=== PATIENT | female | born 1960 | race Caucasian/White ===

== ENCOUNTER 2021-10-17 13:23 | Emergency (ER) | payer OTHER ==
--- OUTSIDE RECORDS SUMMARY | 2021-10-17 13:26 | XMS REPORT | Continuity of Care Document ---
:1960 Author Organization [facility] t Address [address] [place] [address] Care Team Providers Name Role Phone MARK Primary Care Physician Unavailable MARK Attending Clinician Unavailable MARK Attending Clinician Unavailable Payers Payer Name Policy Type Policy Number Effective Date Expiration Date S ource Problems Condition Condition Condition Status Onset Resolution Last Treating Co mments Source Name Details Category Date Date Treatment Clinician Date S/P foot S/P foot Disease Active Unive rs surgery surgery 06-09 ity of 00:00: [address] S/P total S/P total Disease Active Uni vers hip hip 7- ity [place] [facility] Hip Hip Disease Active Univers arthritis arthritis 6-12 ity of 00:00: [address] Allergies, Adverse Reactions, Alerts Allergy Allergy Status Severity Reaction(s) Onset Inactive Treating Comm ents Source Name Type Date Date Clinician NO KNOWN Drug Active Univers ALLERGIE Class ity of S [facility] Social History Social Habit Start Date Stop Date Quantity Comments Source Exposure to Not sure [facility] SARS-CoV-2 (event) [facility] Alcohol intake 2021-07-25 2021-07-25 .86 /d University of 00:00:00 00:00:00 [facility] Cigarettes smoked 2015-09-23 2015-09-23 Univers ity of current (pack per 00:00:00 00:00:00 [facility] ) - Reported Branch Cigarette 2015-09-23 2015-09-23 University of pack-years 00:00:00 00:00:00 [facility] Tobacco use and 2015-09-23 2015-09-23 Never used Universit y of exposure 00:00:00 00:00:00 [facility] History of tobacco 2015-05-13 Cigarette Smoker University of use 00:00:00 [facility] Sex Ass[birth year] At [birth year] Universit y of 00:00:00 00:00:00 [facility] Smoking Status Start Date Stop Date Source Former smoker 2015-09-23 00:00:00 2015-09-23 00:00:00 Universi ty [facility] Medications Ordered Filled Start Stop Current Ordering Indication Dosage Frequency Signature Comments Components Source Medication Medication Date Date Medication? Clinician (SIG) Name Name cyclobenzap 2021- No [id number] 10mg Take 1 Univers rine 10 mg 3-15 03-30 tablet by ity of tablet 00:00: 04:59 mouth 3 [place] 00 :00 (three) Medical times [place] daily for 14 days. cyclobenzap 2021- No [id number] 10mg Take 1 Univers rine 10 mg 3-15 03-30 tablet by ity of tablet 00:00: 04:59 mouth 3 [place] 00 :00 (three) Medical times [place] daily for 14 days. meloxicam 2021- No [id number] 7.5mg Take 7.5 Univers 7.5 mg TbDL 3-15 03-28 mg by ity of 00:00: 00:00 mouth 2 [place] 00 :00 (two) Medical times [place] daily as needed for Pain (scale 4-6). meloxicam 2021- No [id number] 7.5mg Take 7.5 Univers 7.5 mg TbDL 3-15 03-28 mg by ity of 00:00: 00:00 mouth 2 [place] 00 :00 (two) Medical times [place] daily as needed for Pain (scale 4-6). Immunizations Ordered Filled Immunization Date Status Comments Sourc e Immunization Name Name Influenza Virus 2013-02-17 Completed Universit y of Vaccine (3+ yrs) 00:00:00 [facility] dical [place] Influenza Virus 2013-02-17 Completed Universit y of Vaccine (3+ yrs) 00:00:00 [facility] [place] Vital Signs Vital Name Observation Time Observation Value Comments Source Systolic blood 2021-07-25 16:54:00 150 mm[Hg] Univer sity of pressure [facility] Diastolic blood 2021-07-25 16:54:00 81 mm[Hg] Unive rsity of pressure [facility] Heart rate 2021-07-25 16:54:00 74 /min [facility] Body temperature 2021-07-25 16:54:00 35.94 [facility] Respiratory rate 2021-07-25 16:54:00 18 /[facility] Body weight 2021-07-25 16:54:00 82.101 kg [facility] BMI 2021-07-25 16:54:00 28.35 kg/m2 [facility] Oxygen saturation in 2021-07-25 16:54:00 98 /min [facility] Arterial blood by [facility] Pulse oximetry Branch Procedures This patient has no known procedures. Encounters Start End Encounter Admission Attending Care Care Encounter Source Date/Time Date/Time Type Type Clinicians Facility Department ID 2021-10-30 2021-10-30 Outpatient R ADONAY FLORES [facility] [id number] Univers 15:30:00 15:30:00 ADONAY FLORES 220 [facility] 2021-07-25 2021-07-25 Office MAYELIN Flores [id number] Univers 11:30:00 12:43:44 [id number] Shavonne agudelo PROFESSIO [id number] Ms dical [place] [id number] Branch BUILDING 2021-07-25 2021-07-25 Outpatient R ADONAY FLORES [facility] [id number] Univers 11:30:00 12:43:44 ADONAY FLORES [facility] Results This patient has no known results.
--- NOTE | 2021-10-17 16:51 | EDPHYS ---
Physician Documentation [facility] Name: Paula Finch Age: 60 yrs Sex: Female : 1960 Arrival Date: 10/17/2021 Time: 13:27 Bed DIS3 Private MD: ED Physician Mina Cruz HPI: 10/17 13:36 This 60 yrs old Female presents to ER via Ambulatory with complaints of Body Aches, jmm Cough. 13:36 The patient or guardian reports cough. Onset: The symptoms/episode began/occurred jmm gradually, 3 day(s) ago. Modifying factors: The symptoms are alleviated by nothing. the symptoms are aggravated by nothing. Associated signs and symptoms: Pertinent positives: fever, sore throat. It is unknown whether or not the patient has had similar symptoms in the past. Historical: - Allergies: 13:44 No Known Allergies; ap3 - Home Meds: 13:44 None [Active]; ap3 - PMHx: 13:44 None; ap3 - Immunization history:: Client reports having NOT received the Covid vaccine. - Social history:: Smoking status: Patient/guardian denies using tobacco, the patient reports quitting approximately 5 years ago. ROS: 13:36 Constitutional: Positive for body aches, chills. jmm 13:36 ENT: Positive for sore throat. 13:36 Respiratory: Positive for cough. 13:36 All other systems are negative. Exam: 13:36 Constitutional: This is a well developed, well nourished patient who is awake, alert, jmm and in no acute distress. Head/Face: atraumatic. Eyes: EOMI, no conjunctival erythema appreciated ENT: Moist Mucus Membranes Neck: Trachea midline, Supple Chest/axilla: Normal chest wall appearance and motion. Cardiovascular: Regular rate and rhythm. No edema appreciated Respiratory: Normal respirations, no respiratory distress appreciated Abdomen/GI: Non distended, soft Back: Normal ROM Skin: General appearance color normal MS/ Extremity: Moves all extremities, no obvious deformities appreciated, no edema noted to the lower extremities Neuro: Awake and alert Psych: Behavior is normal, Mood is normal, Patient is cooperative and pleasant Vital Signs: 13:43 BP 134 / 78; Pulse 71; Temp 97.7; Pulse Ox 99% ; Weight 80.74 kg; Height 5 ft. 7 in. ap3 (170.18 cm); 13:43 Body Mass Index 27.88 (80.74 kg, 170.18 cm) ap3 MDM: 14:41 Patient medically screened. [facility] 16:49 Data reviewed: vital signs, nurses notes. Counseling: I had a detailed discussion with shawna the patient and/or guardian regarding: the historical points, exam findings, and any diagnostic results supporting the discharge/admit diagnosis, lab results, the need for outpatient follow up, to return to the emergency department if symptoms worsen or persist or if there are any questions or concerns that arise at home. ED course: Patient is alert and non toxic in appearance in the ED. No signs of resp distess. Patient advised to follow up with pcp and otherwise given strict return precautions. Patient understood and agrees with the plan of care, . 10/17 13:35 Order name: Influenza Screen (a \\T\\ B); Complete Time: 15:57 [facility] 10/17 13:35 Order name: SARS-COV-2 RT PCR (Document "Date of Onset" if Symptomatic); Complete Time: [facility] 15:57 10/17 13:36 Order name: Strep; Complete Time: 15:57 [facility] 10/17 14:51 Order name: Throat Culture EDMS Administered Medications: No medications were administered Disposition Summary: 10/17/21 16:50 Discharge Ordered Location: Home [facility] Condition: Stable [facility] Diagnosis - Coronavirus infection, unspecified [facility] Followup: [facility] - With: Private Physician - When: 2 - 3 days - Reason: Recheck today's complaints, Continuance of care, Re-evaluation by your physician Discharge Instructions: - Discharge Summary Sheet [facility] - COVID-19 [facility] Forms: - Medication Reconciliation Form [facility] - Thank You Letter [facility] - Antibiotic Education [facility] - Prescription Opioid Use [facility] Prescriptions: - PAXLOVID - take 1 application by ORAL route 2 times per day for 5 days; 1 packet; Refills: [facility] 0, Product Selection Permitted Addendum: 10/18/2021 23:26 Co-signature as Attending Physician, Mina Cruz MD. r n Signatures: Dispatcher [employer] EDMS Ryan Kulkarni PA PA [facility] Mina Cruz MD MD rn Prokisch, Amanda, RN RN ap3
--- NOTE | 2021-10-17 16:51 | ER ---
Nurse's Notes [facility] Name: Paula Finch Age: 60 yrs Sex: Female : 1960 Arrival Date: 10/17/2021 Time: 13:27 Bed DIS3 Private MD: Diagnosis: Coronavirus infection, unspecified Presentation: 10/17 13:43 Chief complaint: Patient states: that the patient has been having congestion, for ap3 approx 3-4 days now. patient states she has been treating herself at home with nyquil/dayquil and soups. it is reported the patient has been afebrile. Coronavirus screen: Client presents with at least one sign or symptom that may indicate coronavirus-19. Ebola Screen: No symptoms or risks identified at this time. Initial Sepsis Screen: Does the patient meet any 2 criteria? No. Patient's initial sepsis screen is negative. Does the patient have a suspected source of infection? No. Patient's initial sepsis screen is negative. Initial Sepsis Screen: Does the patient meet any 2 criteria?. Risk Assessment: Do you want to hurt yourself or someone else? Patient reports no desire to harm self or others. Onset of symptoms was October 13, 2021. 13:43 Method Of Arrival: Ambulatory ap3 13:43 Acuity: RAFAEL 4 ap3 Triage Assessment: 13:44 General: Appears in no apparent distress. Behavior is calm, cooperative. Pain: ap3 Complains of pain in generalized body aches. Neuro: Level of Consciousness is awake, alert, obeys commands, Oriented to person, place, time, situation, Appropriate for age Gait is steady. Cardiovascular: Patient's skin is warm and dry. Respiratory: Airway is patent Respiratory effort is even, unlabored, Respiratory pattern is regular, symmetrical. Historical: - Allergies: 13:44 No Known Allergies; ap3 - Home Meds: 13:44 None [Active]; ap3 - PMHx: 13:44 None; ap3 - Immunization history:: Client reports having NOT received the Covid vaccine. - Social history:: Smoking status: Patient/guardian denies using tobacco, the patient reports quitting approximately 5 years ago. Screenin:45 Abuse screen: Denies threats or abuse. Nutritional screening: No deficits noted. ap3 Tuberculosis screening: No symptoms or risk factors identified. Fall Risk None identified. Assessment: 14:40 General: Appears comfortable, Behavior is calm, cooperative. Pain: Complains of pain in aa5 whole body Quality of pain is described as aching, Pain began 2-3 days ago. Neuro: Level of Consciousness is awake, alert, obeys commands, Oriented to person, place, time, situation. Cardiovascular: Heart tones S1 S2 present Patient's skin is warm and dry. Rhythm is regular. Respiratory: Reports cough Airway is patent Respiratory effort is even, unlabored, Respiratory pattern is regular, symmetrical. GI: Abdomen is round non-distended, Bowel sounds present X 4 quads. Abd is soft and non tender X 4 quads. : No signs and/or symptoms were reported regarding the genitourinary system. EENT: Reports nasal congestion. Derm: Skin is pink, warm \T\ dry. Musculoskeletal: Range of motion: intact in all extremities. 16:00 Reassessment: Patient is alert, oriented x 3, equal unlabored respirations, skin aa5 warm/dry/pink. Vital Signs: 13:43 BP 134 / 78; Pulse 71; Temp 97.7; Pulse Ox 99% ; Weight 80.74 kg; Height 5 ft. 7 in. ap3 (170.18 cm); 13:43 Body Mass Index 27.88 (80.74 kg, 170.18 cm) ap3 ED Course: 13:27 Patient arrived in ED. rg4 13:31 Ryan Kulkarni PA is PHCP. [facility] 13:32 Mina Cruz MD is Attending Physician. [facility] 13:44 Triage completed. ap3 13:45 Patient has correct armband on for positive identification. ap3 13:45 Arm band placed on left wrist. ap3 14:50 Deann Brown, RN is Primary Nurse. aa5 17:23 No provider procedures requiring assistance completed. Patient did not have IV access iw during this emergency room visit. Administered Medications: No medications were administered Medication: 13:45 VIS not applicable for this client. ap3 Outcome: 16:50 Discharge ordered by . [place] 17:23 Discharged to home ambulatory. iw 17:23 Condition: good 17:23 Discharge instructions given to patient, Instructed on discharge instructions, follow up and referral plans. medication usage, Demonstrated understanding of instructions, follow-up care, medications, Prescriptions given X 1. 17:24 Patient left the ED. iw Signatures: Ryan Kulkarni PA PA jmm Williams, Irene RN RN Deann Silverman RN RN aa5 Jenniffer Fan4 Tatiana Thomas RN RN ap3
[2021-10-17 18:27] VITALS: BP 134/78; TEMP 97.7; O2SAT 99
== END 2021-10-17 17:24 | disposition home or self-care (01) ==
LOC: ER 13:23
DX: U07.1 COVID-19 (principal)
CPT/HCPCS: 87070; 87081; 87804 ×2; 99281; U0003